=== PATIENT | male | born 1960 | race Caucasian/White ===

== ENCOUNTER 2016-04-23 13:42 | Emergency (ER) | payer OTHER ==
[2016-04-23 14:23] VITALS: BP 139/91
--- NOTE | 2016-04-23 14:31 | RAD ---
Indication: Right hip pain. 3 views of the right hip demonstrate soft tissue swelling. No fracture is identified. Ankle mortise is intact. IMPRESSION: No fracture is noted although soft tissue swelling is noted laterally.
--- NOTE | 2016-04-23 14:49 | UC ---
Lower Extremity/Ankle HPI - HPI Summary HPI Summary: left ankle pain and swelling and bruising. Fell off a chair 2d ago, inverted foot. No prior ankle injuries. MIldly painful, using crutches for partial weight -bearing. - History of Current Complaint Chief Complaint: UCLowerExtremity Stated Complaint: RIGHT ANKLE INJURY Time Seen by Provider: 04/23/16 13:56 Hx Obtained From: Patient Onset/Duration: Sudden Onset, Lasting Days - 2 Severity Initially: Moderate Severity Currently: Mild Aggravating Factor(s): Standing, Ambulation Alleviating Factor(s): Elevation, Ice - Risk Factors Gout Risk Factors: Age Over 40, Male DVT Risk Factors: Negative Septic Arthritis Risk Factor: Negative - Allergies/Home Medications Allergies/Adverse Reactions: Allergies Allergy/AdvReac Type Severity Reaction Status Date / Time Ciprofloxacin [From Cipro] Allergy Severe See Comment Verified 04/23/16 13:51 Home Medications: Home Medications Ibuprofen [Advil] 400 mg PO Q5H PRN 04/23/16 [History Confirmed 04/23/16] PMH/Surg Hx/FS Hx/Imm Hx Previously Healthy: Yes - Surgical History Surgical History: Yes Surgery Procedure, Year, and Place: hernia repair fall 2011 - Family History Known Family History: Positive: Hypertension - Social History Occupation: Employed Full-time Lives: With Family Alcohol Use: Occasionally Substance Use Type: None Smoking Status (MU): Never Smoked Tobacco Review of Systems Constitutional: Negative Skin: Negative Eyes: Negative ENT: Negative Respiratory: Negative Cardiovascular: Negative Gastrointestinal: Negative Genitourinary: Negative Motor: Negative Neurovascular: Negative Musculoskeletal: Arthralgia, Decreased ROM, Myalgia Neurological: Negative Psychological: Negative All Other Systems Reviewed And Are Negative: Yes Physical Exam Triage Information Reviewed: Yes Appearance: Well-Appearing, No Pain Distress, Well-Nourished Vital Signs: Initial Vital Signs Temp 98.5 F 04/23/16 13:52 Pulse 74 04/23/16 13:52 Resp 16 04/23/16 13:52 BP 139/91 04/23/16 13:52 Pulse Ox 98 04/23/16 13:52 Vital Signs Reviewed: Yes Eye Exam: Normal Neck exam: Normal Neck: Positive: Supple Respiratory Exam: Normal Cardiovascular Exam: Normal Musculoskeletal Exam: Other - right ankle moderately and diffusely swollen. Ecchymoses under medial malleolus. Good ROM. Tender to touch over lateral malleolus. Achilles' tendon intact Neurological Exam: Normal Psychological Exam: Normal Skin Exam: Normal Diagnostics - Laboratory Diagnostic Studies Completed/Ordered: xray ankle neg Lower Extremity Course/Dx - Differential Dx/Diagnosis Differential Diagnosis/HQI/PQRI: Fracture (Closed), Sprain Provider Diagnoses: ankle sprain Discharge - Discharge Plan Condition: Stable Disposition: HOME Patient Education Materials: Ankle Sprain (ED), Ankle Stirrup Splint (ED), Ankle Exercises (GEN) Referrals: Delvin Gunter MD [Primary Care Provider] -
== END 2016-04-23 14:52 | disposition home or self-care (01) ==
LOC: UCCORT 13:42
DX: S93.402A Sprain of unspecified ligament of left ankle, initial encounter (principal); W07.XXXA Fall from chair, initial encounter; Y93.9 Activity, unspecified; Y92.9 Unspecified place or not applicable; Z88.1 Allergy status to other antibiotic agents
CPT/HCPCS: 99212; G0463

== ENCOUNTER 2016-05-02 15:46 | Emergency (ER) | payer OTHER ==
[2016-05-02 16:31] VITALS: BP 147/86
--- NOTE | 2016-05-02 17:22 | UC ---
Respiratory Complaint HPI - HPI Summary HPI Summary: one week history of cough, malaise and congestion. He began taking erythromycin which was given to his , stopped after 3 days because it did not have an effect. No shortness of breath, normal appetite, cough suppressant at night is effective. - History of Current Complaint Chief Complaint: UCRespiratory Stated Complaint: CHEST CONGESTION Time Seen by Provider: 05/02/16 17:11 Hx Obtained From: Patient Onset/Duration: Gradual Onset, Lasting Days - 7 Character: Cough: Productive Aggravating Factors: Deep Breaths, Recumbent Position Alleviating Factors: OTC Meds Associated Signs And Symptoms: Positive: Nasal Congestion - Risk Factors Pulmonary Embolism Risk Factors: Negative Cardiac Risk Factors: Negative Pseudomonas Risk Factors: Negative Tuberculosis Risk Factors: Negative - Allergies/Home Medications Allergies/Adverse Reactions: Allergies Allergy/AdvReac Type Severity Reaction Status Date / Time Ciprofloxacin [From Cipro] Allergy Severe See Comment Verified 05/02/16 16:31 Home Medications: Home Medications Erythromycin TAB* 250 mg PO QID 05/02/16 [History Confirmed 05/02/16] [id number] [Nyquil Severe Cold/Flu 5-6.25-10-325 mg/15Ml] 1 tab PO QPM PRN 05/02/16 [History Confirmed 05/02/16] guaiFENesin ER TAB [Mucinex*] 600 mg PO BID PRN 05/02/16 [History Confirmed ] PMH/Surg Hx/FS Hx/Imm Hx Previously Healthy: Yes - Surgical History Surgical History: Yes Surgery Procedure, Year, and Place: hernia repair fall 2011 - Family History Known Family History: Positive: Hypertension, Respiratory Disease - father of lung disease. - Social History Occupation: Employed Full-time - [place] Lives: With Family Alcohol Use: Occasionally Substance Use Type: None Smoking Status (MU): Never Smoked Tobacco Review of Systems Constitutional: Fatigue Skin: Negative Eyes: Negative ENT: Sore Throat Respiratory: Cough Cardiovascular: Negative Gastrointestinal: Negative Genitourinary: Negative Motor: Negative Neurovascular: Negative Musculoskeletal: Negative Neurological: Negative Psychological: Negative All Other Systems Reviewed And Are Negative: Yes Physical Exam Triage Information Reviewed: Yes Appearance: Ill-Appearing Vital Signs: Initial Vital Signs Temp 98.8 F 05/02/16 16:23 Pulse 97 05/02/16 16:23 Resp 24 05/02/16 16:23 BP 147/86 05/02/16 16:23 Pulse Ox 99 05/02/16 16:23 Eye Exam: Normal Eyes: Positive: Conjunctiva Clear ENT: Positive: Pharynx normal, TMs normal Dental Exam: Normal Neck: Positive: Supple, Nontender, No Lymphadenopathy Respiratory: Positive: No respiratory distress, Decreased breath sounds - to both bases, Wheezing - throughout both lung chase. Cardiovascular: Positive: RRR, No Murmur Neurological Exam: Normal Psychological Exam: Normal Skin Exam: Normal UC Diagnostic Evaluation - Laboratory O2 Sat by Pulse Oximetry: 99 Respiratory Course/Dx - Course Course Of Treatment: augmentin for bronchitis, prednisone for cough/wheeze. - Differential Dx/Diagnosis Differential Diagnosis/HQI/PQRI: Bronchitis, Sinusitis, Other - pneumonia Provider Diagnoses: bronchitis Discharge - Discharge Plan Condition: Stable Disposition: HOME Prescriptions: Amoxicillin/Clavulanate TAB* [Augmentin TAB 875*] 875 mg PO BID #20 tab predniSONE TAB* [Deltasone TAB*] 2 tab PO DAILY #10 tab Patient Education Materials: Acute Bronchitis (ED) Additional Instructions: begin augmentin for treatment of bronchitis. Take prednisone with food. This will help to decrease airway inflammation and cough. You can continue the use of an over the counter suppressant at night.
== END 2016-05-02 17:36 | disposition home or self-care (01) ==
LOC: UCCORT 15:46
DX: J40 Bronchitis, not specified as acute or chronic (principal); Z88.1 Allergy status to other antibiotic agents
CPT/HCPCS: 99212; G0463